=== PATIENT | male | born 1980 | race Caucasian/White ===

== ENCOUNTER 2016-12-11 14:41 | Emergency (ER) | payer OTHER ==
[~2016-12-11] VITALS: Wt 70.0 kg
[2016-12-11] MEDS ORDERED: KETOROLAC 30 MG INJ IM STA (16:41)
--- NOTE | 2016-12-11 17:29 | RADRPT ---
PROCEDURE: XR Chest. CLINICAL INDICATION: Right upper chest pain posteriorly. TECHNIQUE: Single frontal view. COMPARISON: None. FINDINGS: The lungs are clear. The heart size is normal. There is no pleural effusion. There is no pneumothorax. IMPRESSION: 1. Normal chest radiograph. RPTAT: QQ .Bishop Carrizales MD, MD Date Time Electronically viewed and signed by .Bishop Carrizales MD, MD on 12/11/2016 17:28 .R/
[2016-12-11] MEDS ORDERED: CYCL5TAB PO (17:42)
[2016-12-11] MEDS ORDERED: NAPR-260 PO (17:42)
--- NOTE | 2016-12-11 19:26 | ERD ---
ER Documentation Chief Complaint Date/Time DATE: 12/11/16 TIME: 19:25 Chief Complaint right upper back pain on inspiration and movement for a few days. 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 Patient states that his pain is worse when he moves, takes a deep breath in or out. It occurred after he was working, he does state that he usually uses his upper back at work. He denies fevers or chills or trauma. ROS All systems reviewed and are negative except as per history of present illness. Medications Home Meds Active Scripts Cyclobenzaprine Hcl* (Cyclobenzaprine Hcl*) 5 Mg Tablet, 5 MG PO Q8H Y for PAIN , #15 TAB Prov:BRANDT MAGANA PA-C 12/11/16 Naproxen* (Naprosyn*) 500 Mg Tablet, 500 MG PO BID Y for PAIN AND/OR INFLAMMATION, #30 TAB Prov:BRANDT MAGANA PA-C 12/11/16 PMhx/Soc Medical and Surgical Hx: pt denies Medical Hx History of Surgery: Yes (l. wrist) Hx Alcohol Use: No Hx Substance Use: No Hx Tobacco Use: No Physical Exam Vitals Vital Signs Date Time Temp Pulse Resp B/P Pulse Ox O2 Delivery O2 Flow Rate FiO2 12/11/16 15:07 98.8 72 21 140/83 98 Physical Exam General: Well-developed, well-nourished. The patient appears in no acute distress. HEENT: Head is normocephalic, atraumatic. No scleral icterus. Neck: Supple. Nontender. Lungs: Clear to auscultation. Normal air movement. Chest: Superficial chest wall tenderness, there is no evidence of rash. Heart: Regular rate and rhythm. S1 and S2 are normal. No murmurs, gallops, or rubs. Abdomen: Soft, nontender, nondistended. Bowel sounds are normoactive. Extremities: No clubbing or cyanosis. Normal pulses. Moving extremities x 4. No weakness. Neurologic: Alert and oriented 3. No focal deficits. Skin: Normal turgor. No rash or lesions. Results 24 hrs Current Medications Medications (Trade) Dose Ordered Sig/Phil Route PRN Reason Start Time Stop Time Status Last Admin Dose Admin Ketorolac Tromethamine (Toradol) 30 mg ONCE STAT IM 12/11/16 16:41 12/11/16 16:43 DC 12/11/16 16:57 PROCEDURE: XR Chest. CLINICAL INDICATION: Right upper chest pain posteriorly. TECHNIQUE: Single frontal view. COMPARISON: None. FINDINGS: The lungs are clear. The heart size is normal. There is no pleural effusion. There is no pneumothorax. IMPRESSION: 1. Normal chest radiograph. RPTAT: QQ .Bishop Carrizales MD, MD Date Time Electronically viewed and signed by .Bishop Carrizales MD, MD on 12/11/2016 17:28 .R/ CC: BRANDT MAGANA PA-C Procedures/MDM ED course: Patient was given Toradol 30 mg IM. 36-year-old male comes in with right anterior and lateral chest pain, atraumatic , and there is no evidence of pneumothorax, pneumonia. There are no rashes, signs of cellulitis, abscess or soft shingles. His chest wall is tender to palpation, this is likely a costochondritis and patient was given ibuprofen and Flexeril to go home with. No associated abdominal pain, no signs of acute cholecystitis. Departure Diagnosis: Primary Impression: Back pain Condition: Good Patient Instructions: Chest Wall Strain Additional Instructions: Call your primary care doctor TOMORROW for an appointment during the next 1-2 days.See the doctor sooner or return here if your condition worsens before your appointment time. BRANDT MAGANA PA-C Dec 11, 2016 19:26
== END 2016-12-11 17:46 | disposition home or self-care (01) ==
LOC: FTE 14:41
DX: M54.9 Dorsalgia, unspecified (principal)
CPT/HCPCS: 71010; 96372; J1885; Z7502

== ENCOUNTER 2017-08-25 13:38 | Emergency (ER) | payer OTHER ==
[~2017-08-25] VITALS: Wt 85.0 kg
[~2017-08-25 13:38] MED LIST: CYCL5TAB PO; NAPR-260 PO
[2017-08-25] MEDS ORDERED: SOD CHLORIDE 0.9% 1,000 ML IV STA (13:53)
[2017-08-25] MEDS ORDERED: DIPHTH/TET/ACEL PERTUSS (ADULT) 0.5 ML VIAL IM* ONE (14:00)
--- NOTE | 2017-08-25 14:34 | RADRPT ---
PROCEDURE: CT Brain without contrast. CLINICAL INDICATION: Syncope. TECHNIQUE: A CT of the brain was performed on multidetector high-resolution CT scanner utilizing a xial sections from the skull base through the vertex without contrast. The scan was reviewed in sof t tissue brain and high frequency resolution bone algorithm windows. Images were reviewed on a high -resolution PACS workstation. One or more the following does reduction techniques were utilized: Aut omated exposure control, adjustment of the mA/ or kV according to patient's size, or use of iterativ e reconstruction technique. The exam CTDI = 44.73 mGy and the DLP = 720.23 mGy-cm. COMPARISON: None available. FINDINGS: The ventricles and sulci are age-appropriate. There is no intracranial hemorrhage, mass effect or mi dline shift. No abnormal intra-axial or extra-axial fluid collections are seen. The nicole/white bernabe er differentiation is preserved. No acute skull abnormality is noted. The visualized paranasal sinus es are essentially clear. IMPRESSION: 1. No acute intracranial hemorrhage, transcortical infarction or mass effect. RPTAT: HH .Damaso Rivero MD, MD Date Time Electronically viewed and signed by .Damaso Rivero MD, MD on 08/25/2017 14:34 .N/
--- NOTE | 2017-08-25 14:40 | RADRPT ---
PROCEDURE: CT cervical spine without contrast CLINICAL INDICATION: Trauma. Neck pain. TECHNIQUE: CT scan of the cervical spine was performed [facility] No IV contrast was administered. Coronal and sagittal reformatted images were obtained from th e axial source images. Images were reviewed on a high-resolution PACS workstation. One or more the f ollowing does reduction techniques were utilized: Automated exposure control, adjustment of the mA/ or kV according to patient's size, or use of iterative reconstruction technique. Exam CTDI = 22.24 m Gy and the DLP = 512.61 mGy-cm. COMPARISON: None available. FINDINGS: There is straightening of the alignment of the cervical spine with loss of the normal cervical lordo sis. Alignment remains intact. No acute fracture or dislocation is seen. The vertebral body heigh ts are preserved. No mass, hematoma, or other soft tissue abnormality is seen. There are multilevel mild degenerative changes of the cervical spine, manifested by osteophytosis an d disc height narrowing, most prominent at C5-C6 and C6-C7. No significant spinal canal or foraminal stenosis is noted. IMPRESSION: 1. Straightening of normal cervical lordosis. 2. No acute fracture or traumatic subluxation. 3. Multilevel mild degenerative changes of the cervical spine, most prominent at C5-C6 and C6-C7. RPTAT: HH .Damaso Rivero MD, MD Date Time Electronically viewed and signed by .Damaso Rivero MD, MD on 08/25/2017 14:39 .N/
--- NOTE | 2017-08-25 15:52 | ERD ---
ER Documentation Chief Complaint Chief Complaint SEIZURE WHILE STANDING AT [facility]. FACIAL ABRASION WITH NO NEURO DEFICIT HPI Patient is a 37-year-old male with no medical problems who presents with syncope. He was brought in by ambulance. The history and physical exam is limited secondary to the patient's recall of the events. The patient "blacked out at the [facility]". He said this happened once before. It happened just prior to arrival. He feels better now. He did hit his head and has abrasion to his right forehead and face. His blood pressure was low by paramedics and he was given fluids. His blood sugar was 114. He does not drive he was only at the [facility] to get a identification done. He does not know the name of his primary doctor. ROS All systems reviewed and are negative except as per history of present illness. Medications Home Meds Active Scripts Cyclobenzaprine Hcl* (Cyclobenzaprine Hcl*) 5 Mg Tablet, 5 MG PO Q8H Y for PAIN , #15 TAB Prov:BRANDT MAGANA PA-C 12/11/16 Naproxen* (Naprosyn*) 500 Mg Tablet, 500 MG PO BID Y for PAIN AND/OR INFLAMMATION, #30 TAB Prov:RBANDT MAGANA PA-C 12/11/16 PMhx/Soc History of Surgery: Yes (l. wrist) Hx Alcohol Use: No Hx Substance Use: No Hx Tobacco Use: No Smoking Status: Never smoker FmHx Family History: No diabetes Physical Exam Vitals Vital Signs Date Time Temp Pulse Resp B/P Pulse Ox O2 Delivery O2 Flow Rate FiO2 08/25/17 16:03 98.0 84 18 140/85 98 Room Air 08/25/17 13:43 98.6 84 21 105/59 98 Physical Exam Const: No acute distress Head: Abrasions to right forehead and face Eyes: Normal Conjunctiva ENT: Normal External Ears, Nose and Mouth. Neck: Full range of motion..~ No meningismus. Resp: Clear to auscultation bilaterally Cardio: Regular rate and rhythm, no murmurs Abd: Soft, non tender, non distended. Normal bowel sounds Skin: Abrasions to right forehead and face Back: No midline or flank tenderness Ext: No cyanosis, or edema Neur: Awake and alert Psych: Normal Mood and Affect Result Diagram: 08/25/17 1358 08/25/17 1358 Results 24 hrs Laboratory Tests Test 08/25/17 13:58 White Blood Count 7.910^3/ul Red Blood Count 5.3410^6/ul Hemoglobin 14.5g/dl Hematocrit 44.1% Mean Corpuscular Volume 82.6fl Mean Corpuscular Hemoglobin 27.2pg Mean Corpuscular Hemoglobin Concent 32.9g/dl Red Cell Distribution Width 13.1% Platelet Count 44190^3/UL Mean Platelet Volume 9.3fl Neutrophils % 56.7% Lymphocytes % 32.4% Monocytes % 6.8% Eosinophils % 2.9% Basophils % 0.8% Nucleated Red Blood Cells % 0.0/100WBC Neutrophils # 4.510^3/ul Lymphocytes # 2.610^3/ul Monocytes # 0.510^3/ul Eosinophils # 0.210^3/ul Basophils # 0.110^3/ul Nucleated Red Blood Cells # 0.010^3/ul Sodium Level 141mmol/L Potassium Level 3.8mmol/L Chloride Level 106mmol/L Carbon Dioxide Level 27mmol/L Anion Gap 12 Blood Urea Nitrogen 10mg/dl Creatinine 0.80mg/dl Glucose Level 101mg/dl Calcium Level 9.3mg/dl Troponin I < 0.012ng/ml Current Medications Medications (Trade) Dose Ordered Sig/Phil Route PRN Reason Start Time Stop Time Status Last Admin Dose Admin Sodium Chloride (NS) 1,000 ml @ 1,000 mls/hr Q1H STAT IV 08/25/17 13:53 08/25/17 14:52 DC 08/25/17 14:39 Diphtheria/ Tetanus/Acell Pertussis (Adacel) 0.5 ml ONCE ONCE IM* 08/25/17 14:00 08/25/17 14:01 DC 08/25/17 14:39 Procedures/MDM EKG read by me: Rate/Rhythm: Regular rate and rhythm at a rate of 73 Intervals: Normal Impression: No evidence of ischemia or arrhythmia CT brain and cervical spine negative for traumatic injury per radiology. Smoking Cessation Therapy: Pt. was lectured for greater than 3 minutes on the health risks of continued smoking and the benefits of cessation. Patient is a 37-year-old male who presents with syncope. Laboratory studies were normal. CT scan of the brain and spine were negative. The patient had an EKG which did not show any signs of ischemia or arrhythmia. I doubt serious cardiac arrhythmia or serious cause of etiology at this time. The patient will need to follow-up with his primary doctor within 24-48 hours and could return if symptoms worsen. Departure Diagnosis: Primary Impression: Syncope Syncope type: unspecified Qualified Code: R55 - Syncope, unspecified syncope type Additional Impression: Abrasion Condition: Fair Patient Instructions: Causes of Syncope, Abrasion Additional Instructions: Call your primary care doctor TOMORROW for an appointment during the next 1-2 days.See the doctor sooner or return here if your condition worsens before your appointment time. ZENY NICOLE MD Aug 25, 2017 15:52
--- NOTE | 2017-08-25 15:52 | ERD ---
ER Documentation Chief Complaint Chief Complaint SEIZURE WHILE STANDING AT [facility] AT THE [facility]. FACIAL ABRASION WITH NO NEURO DEFICIT HPI Patient is a 37-year-old male with no medical problems who presents with syncope. He was brought in by ambulance. The history and physical exam is limited secondary to the patient's recall of the events. The patient "blacked out at the [facility] AT THE [facility]". He said this happened once before. It happened just prior to arrival. He feels better now. He did hit his head and has abrasion to his right forehead and face. His blood pressure was low by paramedics and he was given fluids. His blood sugar was 114. He does not drive he was only at the [facility] THE [facility] to get a identification done. He does not know the name of his primary doctor. ROS All systems reviewed and are negative except as per history of present illness. Medications Home Meds Active Scripts Cyclobenzaprine Hcl* (Cyclobenzaprine Hcl*) 5 Mg Tablet, 5 MG PO Q8H Y for PAIN , #15 TAB Prov:BRANDT MAGANA PA-C 12/11/16 Naproxen* (Naprosyn*) 500 Mg Tablet, 500 MG PO BID Y for PAIN AND/OR INFLAMMATION, #30 TAB Prov:BRANDT MAGANA PA-C 12/11/16 PMhx/Soc History of Surgery: Yes (l. wrist) Hx Alcohol Use: No Hx Substance Use: No Hx Tobacco Use: No Smoking Status: Never smoker FmHx Family History: No diabetes Physical Exam Vitals Vital Signs Date Time Temp Pulse Resp B/P Pulse Ox O2 Delivery O2 Flow Rate FiO2 08/25/17 16:03 98.0 84 18 140/85 98 Room Air 08/25/17 13:43 98.6 84 21 105/59 98 Physical Exam Const: No acute distress Head: Abrasions to right forehead and face Eyes: Normal Conjunctiva ENT: Normal External Ears, Nose and Mouth. Neck: Full range of motion..~ No meningismus. Resp: Clear to auscultation bilaterally Cardio: Regular rate and rhythm, no murmurs Abd: Soft, non tender, non distended. Normal bowel sounds Skin: Abrasions to right forehead and face Back: No midline or flank tenderness Ext: No cyanosis, or edema Neur: Awake and alert Psych: Normal Mood and Affect Result Diagram: 08/25/17 1358 08/25/17 1358 Results 24 hrs Laboratory Tests Test 08/25/17 13:58 White Blood Count 7.910^3/ul Red Blood Count 5.3410^6/ul Hemoglobin 14.5g/dl Hematocrit 44.1% Mean Corpuscular Volume 82.6fl Mean Corpuscular Hemoglobin 27.2pg Mean Corpuscular Hemoglobin Concent 32.9g/dl Red Cell Distribution Width 13.1% Platelet Count 49421^3/UL Mean Platelet Volume 9.3fl Neutrophils % 56.7% Lymphocytes % 32.4% Monocytes % 6.8% Eosinophils % 2.9% Basophils % 0.8% Nucleated Red Blood Cells % 0.0/100WBC Neutrophils # 4.510^3/ul Lymphocytes # 2.610^3/ul Monocytes # 0.510^3/ul Eosinophils # 0.210^3/ul Basophils # 0.110^3/ul Nucleated Red Blood Cells # 0.010^3/ul Sodium Level 141mmol/L Potassium Level 3.8mmol/L Chloride Level 106mmol/L Carbon Dioxide Level 27mmol/L Anion Gap 12 Blood Urea Nitrogen 10mg/dl Creatinine 0.80mg/dl Glucose Level 101mg/dl Calcium Level 9.3mg/dl Troponin I < 0.012ng/ml Current Medications Medications (Trade) Dose Ordered Sig/Phil Route PRN Reason Start Time Stop Time Status Last Admin Dose Admin Sodium Chloride (NS) 1,000 ml @ 1,000 mls/hr Q1H STAT IV 08/25/17 13:53 08/25/17 14:52 DC 08/25/17 14:39 Diphtheria/ Tetanus/Acell Pertussis (Adacel) 0.5 ml ONCE ONCE IM* 08/25/17 14:00 08/25/17 14:01 DC 08/25/17 14:39 Procedures/MDM EKG read by me: Rate/Rhythm: Regular rate and rhythm at a rate of 73 Intervals: Normal Impression: No evidence of ischemia or arrhythmia CT brain and cervical spine negative for traumatic injury per radiology. Smoking Cessation Therapy: Pt. was lectured for greater than 3 minutes on the health risks of continued smoking and the benefits of cessation. Patient is a 37-year-old male who presents with syncope. Laboratory studies were normal. CT scan of the brain and spine were negative. The patient had an EKG which did not show any signs of ischemia or arrhythmia. I doubt serious cardiac arrhythmia or serious cause of etiology at this time. The patient will need to follow-up with his primary doctor within 24-48 hours and could return if symptoms worsen. Departure Diagnosis: Primary Impression: Syncope Syncope type: unspecified Qualified Code: R55 - Syncope, unspecified syncope type Additional Impression: Abrasion Condition: Fair Patient Instructions: Causes of Syncope, Abrasion Additional Instructions: Call your primary care doctor TOMORROW for an appointment during the next 1-2 days.See the doctor sooner or return here if your condition worsens before your appointment time. ZENY NICOLE MD Aug 25, 2017 15:52
--- NOTE | 2017-08-25 15:52 | ERD ---
ER Documentation Chief Complaint Chief Complaint SEIZURE WHILE STANDING AT [facility]. FACIAL ABRASION WITH NO NEURO DEFICIT HPI Patient is a 37-year-old male with no medical problems who presents with syncope. He was brought in by ambulance. The history and physical exam is limited secondary to the patient's recall of the events. The patient "blacked out at the [facility]". He said this happened once before. It happened just prior to arrival. He feels better now. He did hit his head and has abrasion to his right forehead and face. His blood pressure was low by paramedics and he was given fluids. His blood sugar was 114. He does not drive he was only at the [facility] to get a identification done. He does not know the name of his primary doctor. ROS All systems reviewed and are negative except as per history of present illness. Medications Home Meds Active Scripts Cyclobenzaprine Hcl* (Cyclobenzaprine Hcl*) 5 Mg Tablet, 5 MG PO Q8H Y for PAIN , #15 TAB Prov:BRANDT MAGANA PA-C 12/11/16 Naproxen* (Naprosyn*) 500 Mg Tablet, 500 MG PO BID Y for PAIN AND/OR INFLAMMATION, #30 TAB Prov:BRANDT MAGANA PA-C 12/11/16 PMhx/Soc History of Surgery: Yes (l. wrist) Hx Alcohol Use: No Hx Substance Use: No Hx Tobacco Use: No Smoking Status: Never smoker FmHx Family History: No diabetes Physical Exam Vitals Vital Signs Date Time Temp Pulse Resp B/P Pulse Ox O2 Delivery O2 Flow Rate FiO2 08/25/17 16:03 98.0 84 18 140/85 98 Room Air 08/25/17 13:43 98.6 84 21 105/59 98 Physical Exam Const: No acute distress Head: Abrasions to right forehead and face Eyes: Normal Conjunctiva ENT: Normal External Ears, Nose and Mouth. Neck: Full range of motion..~ No meningismus. Resp: Clear to auscultation bilaterally Cardio: Regular rate and rhythm, no murmurs Abd: Soft, non tender, non distended. Normal bowel sounds Skin: Abrasions to right forehead and face Back: No midline or flank tenderness Ext: No cyanosis, or edema Neur: Awake and alert Psych: Normal Mood and Affect Result Diagram: 08/25/17 1358 08/25/17 1358 Results 24 hrs Laboratory Tests Test 08/25/17 13:58 White Blood Count 7.910^3/ul Red Blood Count 5.3410^6/ul Hemoglobin 14.5g/dl Hematocrit 44.1% Mean Corpuscular Volume 82.6fl Mean Corpuscular Hemoglobin 27.2pg Mean Corpuscular Hemoglobin Concent 32.9g/dl Red Cell Distribution Width 13.1% Platelet Count 74922^3/UL Mean Platelet Volume 9.3fl Neutrophils % 56.7% Lymphocytes % 32.4% Monocytes % 6.8% Eosinophils % 2.9% Basophils % 0.8% Nucleated Red Blood Cells % 0.0/100WBC Neutrophils # 4.510^3/ul Lymphocytes # 2.610^3/ul Monocytes # 0.510^3/ul Eosinophils # 0.210^3/ul Basophils # 0.110^3/ul Nucleated Red Blood Cells # 0.010^3/ul Sodium Level 141mmol/L Potassium Level 3.8mmol/L Chloride Level 106mmol/L Carbon Dioxide Level 27mmol/L Anion Gap 12 Blood Urea Nitrogen 10mg/dl Creatinine 0.80mg/dl Glucose Level 101mg/dl Calcium Level 9.3mg/dl Troponin I < 0.012ng/ml Current Medications Medications (Trade) Dose Ordered Sig/Phli Route PRN Reason Start Time Stop Time Status Last Admin Dose Admin Sodium Chloride (NS) 1,000 ml @ 1,000 mls/hr Q1H STAT IV 08/25/17 13:53 08/25/17 14:52 DC 08/25/17 14:39 Diphtheria/ Tetanus/Acell Pertussis (Adacel) 0.5 ml ONCE ONCE IM* 08/25/17 14:00 08/25/17 14:01 DC 08/25/17 14:39 Procedures/MDM EKG read by me: Rate/Rhythm: Regular rate and rhythm at a rate of 73 Intervals: Normal Impression: No evidence of ischemia or arrhythmia CT brain and cervical spine negative for traumatic injury per radiology. Smoking Cessation Therapy: Pt. was lectured for greater than 3 minutes on the health risks of continued smoking and the benefits of cessation. Patient is a 37-year-old male who presents with syncope. Laboratory studies were normal. CT scan of the brain and spine were negative. The patient had an EKG which did not show any signs of ischemia or arrhythmia. I doubt serious cardiac arrhythmia or serious cause of etiology at this time. The patient will need to follow-up with his primary doctor within 24-48 hours and could return if symptoms worsen. Departure Diagnosis: Primary Impression: Syncope Syncope type: unspecified Qualified Code: R55 - Syncope, unspecified syncope type Additional Impression: Abrasion Condition: Fair Patient Instructions: Causes of Syncope, Abrasion Additional Instructions: Call your primary care doctor TOMORROW for an appointment during the next 1-2 days.See the doctor sooner or return here if your condition worsens before your appointment time. ZENY NICOLE MD Aug 25, 2017 15:52
[2017-08-25 16:03] VITALS: BP 140/85; PULSE 84; RESP 18; TEMP 98
== END 2017-08-25 16:05 | disposition home or self-care (01) ==
LOC: E/R 13:38
DX: R55 Syncope and collapse (principal); S00.81XA Abrasion of other part of head, initial encounter; F17.210 Nicotine dependence, cigarettes, uncomplicated; X58.XXXA Exposure to other specified factors, initial encounter; Y92.9 Unspecified place or not applicable; Z23 Encounter for immunization
CPT/HCPCS: 36415; 70450; 72125; 80048; 84484; 85025; 90471; 90715; 93005; J7030; Z7502